=== PATIENT | female | born 1965 | race African-American/Black ===

== ENCOUNTER 2016-11-26 19:31 | Emergency (ER) | payer OTHER ==
[~2016-11-26 19:31] MED LIST: ATARAX25 MG PO; CLONAZEPAM0.5 MG PO; FIORICET1 TA1 PO; IBUPROFEN400 MG PO; MELOXICAM15 MG PO; MULTI-VITAMIN1 EAC1 PO; SERTRALINE HCL100 M1 PO; VIT D PO; [UNRECOGNIZED DRUG - OTHER] PO
[2016-11-26 21:58] LABS: URINE BILIRUBIN NEGATIVE (NEG); URINE BLOOD LARGE (NEG); URINE GLUCOSE (UA) NEGATIVE (NEG); URINE KETONE NEGATIVE (NEG); URINE LEUKOCYTE ESTERASE NEGATIVE (NEG); URINE NITRITE NEGATIVE (NEG); URINE PROTEIN NEGATIVE (NEG); URINE SPECIFIC GRAVITY 1.005 (1.003-1.030)
[2016-11-26 21:59] LABS: URINE APPEARANCE HAZY; URINE COLOR PALE YELLOW
[2016-11-26 22:05] LABS: URINE EPITHELIAL CELLS 0-1 /[HPF] (0-10); URINE WBC 0-1 /[HPF] (0-5)
[2016-11-26] MEDS ORDERED: PREDNISONE20 M1 PO (22:06)
[2016-11-26] MEDS ORDERED: PEPCID20 M1 PO (22:06)
[2016-11-26] MEDS ORDERED: MACROBID 100 M100 M1 PO (22:26)
== END 2016-11-26 22:43 ==
LOC: EDMED 19:31
PROVIDERS: Emergency Medicine
DX: T78.3XXA Angioneurotic edema, initial encounter (principal); N39.0 Urinary tract infection, site not specified; R31.9 Hematuria, unspecified; E11.9 Type 2 diabetes mellitus without complications; Z79.4 Long term (current) use of insulin
CPT/HCPCS: J0171; J1200; J2930